=== PATIENT | female | born 1995 | race Caucasian/White ===

== ENCOUNTER 2024-02-18 11:09 | Emergency (ER) | payer OTHER, SELFPAY ==
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
[2024-02-18 11:15] VITALS: BP 111/80; PULSE 95; RESP 14; TEMP 36.5; O2SAT 100; BMI 24.6
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
[2024-02-18] MEDS: ondansetron HCL 4 MG/2 ML VIAL IVPUSH (12:11)
[2024-02-18] MEDS: Morphine Sulfate 4 MG/ML CARTRIDGE IVPUSH ×2 (12:14→15:00)
[2024-02-18 12:15] LABS: MANUAL DIFF FLAG NO
[2024-02-18 12:17] VITALS: BP 111/80; PULSE 100; RESP 16; TEMP 36.7; O2SAT 98
[2024-02-18 12:18] LABS: Basophils Percent Auto 0.8 % (0-2); Eosinophils Absolute Auto 0.1 X10*3/uL (0.0-0.4); Eosinophils Percent Auto 2.7 % (0-4); Hemoglobin 14.3 g/dl (12.0-16.0); Imm Gran Abs Auto 0.02 X10*3/uL (0.00-0.03); Imm Gran Pct Auto 0.4 % (0.0-0.4); Lymphocytes Absolute Auto 1.1 X10*3/uL (1.2-4.9); Lymphocytes Percent Auto 22.1 % (20-40); Mean Corpuscular HGB Conc 34.9 g/dl (31.0-35.0); Mean Corpuscular Hemoglobin 32.9 pg (27.0-33.0); Mean Corpuscular Volume 94.5 fL (80.0-98.0); Monocytes Absolute Auto 0.3 X10*3/uL (0.1-1.2); Monocytes Percent Auto 5.9 % (2-11); Neutrophils Absolute Auto 3.2 x10*3/uL (2.0-8.3); Neutrophils Percent Auto 68.1 % (45-73); Platelet Count 325 X10*3/uL (160-400); Red Blood Count 4.34 X10*6/uL (4.20-5.50); Red Cell Distribution Width 11.5 % (11.0-16.0); White Blood Count 4.8 X10*3/uL (4.8-10.8)
--- NOTE | 2024-02-18 12:19 | PC.NURSE ---
20gIV placed in the left AC - labs obtained/sent to lab. medication administered per provider order. effectiveness pending. pt ambulates to the restroom w/ a strong steady gait - no use of assistive devices needed. urine obtained/sent to lab by tech. no sob/wob noted. respirations even/unlabored. pt waiting for CT to be completed. mother bedside for support. plan of care ongoing. call dunn placed within reach.
[2024-02-18 12:25] LABS: Appearance Urine Clear; Color Urine Yellow; Glucose Urine UA Negative (Negative); Leukocyte Esterase Urine Trace (Negative); Nitrite Urine Negative (Negative); UMIC TRIGGER UACC YES; Urine Blood Negative (Negative); Urine Ketones Negative (Negative); Urine Protein Negative (Neg-Trace)
[2024-02-18 12:28] LABS: Bacteria Urine 1+ (None Seen); Hyaline Casts Urine 0-2 /LPF (0-2); RBC Urine 0-2 /HPF (0-2); WBC Urine 0-5 /HPF (0-5)
[2024-02-18 12:30] LABS: Alanine Aminotransferase 18 U/L (0-31); Albumin Level 4.5 g/dL (3.5-5.0); Alkaline Phosphatase 56 U/L (39-117); Anion Gap 10 (12-20); Aspartate Amino Transferase 21 U/L (5-31); Bilirubin Direct 0.1 mg/dL (0.0-0.5); Bilirubin Total 0.3 mg/dL (0.0-1.0); Blood Urea Nitrogen 10 mg/dL (9-16); Calcium 9.6 mg/dL (8.4-10.2); Carbon Dioxide 25 mmol/L (22-29); Chloride 109 mmol/L (96-108); Creatinine Clr Calc Pharmacy 98.3; Estimated Glomerular Filt Rate > 60; Glucose Random 90 mg/dL (60-115); Lipase 23 U/L (8-78); Potassium 3.9 mmol/L (3.3-5.1); Sodium 140 mmol/L (135-145); Total Protein 7.3 g/dL (6.5-8.0)
[2024-02-18 13:15] LABS: HCG Quantitative < 2 mIU/mL
[2024-02-18 15:00] VITALS: BP 114/69; PULSE 89; RESP 14; TEMP 36.5; O2SAT 98
[2024-02-18] MEDS: Ketorolac Tromethamine 15 MG/ML VIAL IVPUSH (15:00)
[2024-02-18 15:47] VITALS: BP 114/69; PULSE 89; RESP 14; TEMP 36.5; O2SAT 98
--- OUTSIDE RECORDS SUMMARY | 2024-02-19 14:43 | XMS_ITS | Continuity of Care Document ---
Author Organization [facility] Address [address] [place] [address]- Care Team Providers Care Community Affairs Director Name Role Phone Not on Staff, PCP Primary Care Physician Unavail able Encounter [facility] [place] Date(s): 10/31/19 - 10/31/[address] [address]- [place] [phone] Discharge Disposition: A-D/C Walkout Attending Physician: Basil Rodrigues MD Admitting Physician: Basil Rodrigues MD Referring Physician: Not on Staff, Meseret LINDSAY
== END 2024-02-18 15:48 | disposition home or self-care (01) ==
PROVIDERS: Emergency Provider Emergency Medicine
DX: S13.4XXA Sprain of ligaments of cervical spine, initial encounter (principal); R10.2 Pelvic and perineal pain; M25.551 Pain in right hip; M54.2 Cervicalgia; R51.9 Headache, unspecified; V47.5XXA Car driver injured in collision with fixed or stationary object in traffic accident, initial encounter; Y93.89 Activity, other specified; Y92.488 Other paved roadways as the place of occurrence of the external cause; Y99.8 Other external cause status
CPT/HCPCS: 36415; 70450; 71260; 72125; 74177; 80048; 80076; 81001; 83690; 83735; 84702; 85025; 96374; 96375; 96376; 99284; J1885; J2270; J2405

== ENCOUNTER → 2024-02-18 11:58 | Outpatient (BNV) | payer OTHER, SELFPAY | PROVIDERS: Emergency Provider Emergency Medicine; Visit Provider Radiology Diagnostic Radiology | DX: S09.90XA Unspecified injury of head, initial encounter (principal); S29.9XXA Unspecified injury of thorax, initial encounter; M54.2 Cervicalgia; R10.31 Right lower quadrant pain | CPT/HCPCS: 70450; 71260; 72125; 74177 ==